=== PATIENT | female | born 1950 | race Caucasian/White ===

== ENCOUNTER 2019-04-09 16:49 | Inpatient (IN) | payer MEDICARE, OTHER ==
[~2019-04-09] VITALS: Ht 165.1 cm; Wt 59.9 kg
[2019-04-09 18:01] VITALS: BP 106/68
[2019-04-09] MEDS ORDERED: ACETAMINOPHEN 325 MG TABLET PO PRN (19:15)
[2019-04-09] MEDS ORDERED: *PATIENT'S OWN MED [ENTER DRUG, DOSE, FREQUENCY IN COMMENTS] CLINICAL ONE ×2 (19:15)
[2019-04-09 20:56] VITALS: BP 109/63
[2019-04-09] MEDS: DEXAMETHASONE 2 MG TABLET PO SCH (21:00)
[2019-04-09] MEDS: DOCUSATE SODIUM 100 MG CAPSULE PO SCH (21:00)
[2019-04-09] MEDS: CALCIUM OYSTER SHELL 250 MG-VIT D3 125 UNITS TABLET PO SCH (21:00)
[2019-04-09 23:30] VITALS: BP 114/71
[2019-04-10 06:27] LABS: BASOPHILS % (AUTO) 0.3 % (0.0-2.0); EOSINOPHILS % (AUTO) 0.1 % (1.0-6.0); HEMATOCRIT 36.6 % (36-46); HEMOGLOBIN 12.3 g/dL (12.0-16.0); LYMPHOCYTES % (AUTO) 11.6 % (22.0-44.0); MEAN CORPUSCULAR HEMOGLOBIN 30.4 pg (26.0-34.0); MEAN CORPUSCULAR HGB CONC 33.7 G/dL (31.0-37.0); MEAN CORPUSCULAR VOLUME 90 fL (80-100); MONOCYTES # (AUTO) 0.3 K/uL (0.1-1.0); MONOCYTES % (AUTO) 3.5 % (2.0-9.0); NEUTROPHILS # (AUTO) 7.3 K/uL (1.8-7.7); NEUTROPHILS % (AUTO) 84.5 % (40.0-70.0); PLATELET COUNT (AUTO) 475 K/uL (150-450); RED BLOOD CELL COUNT(AUTO) 4.06 MIL/uL (4.00-5.20)
[2019-04-10 07:08] LABS: ALANINE AMINOTRANSFERASE 67 U/L (12-78); ALBUMIN 2.2 g/dL (3.4-5.0); ALKALINE PHOSPHATASE 313 U/L (46-116); ANION GAP 13 mmol/L (8-16); ASPARTATE AMINOTRANSFERASE 42 U/L (15-37); BILIRUBIN,TOTAL 0.5 mg/dL (0.1-1.0); CARBON DIOXIDE 24 mmol/L (22-29); CHLORIDE 103 mmol/L (98-107); GLOMERULAR FILTR. RATE CALC > 60 mL/min (>60); GLUCOSE,RANDOM 89 mg/dL (70-110); POTASSIUM 4.3 mmol/L (3.5-5.1); SODIUM SERUM 140 mmol/L (136-145); UREA NITROGEN, BLOOD 15 mg/dL (7-18)
[2019-04-10 07:43] VITALS: BP 112/73
[2019-04-10] MEDS: RIVAROXABAN 15 MG TABLET PO SCH ×2 (07:52→17:43)
[2019-04-10] MEDS: DEXAMETHASONE 2 MG TABLET PO SCH ×2 (07:53→21:20)
[2019-04-10] MEDS: DOCUSATE SODIUM 100 MG CAPSULE PO SCH (07:54)
[2019-04-10] MEDS: CALCIUM OYSTER SHELL 250 MG-VIT D3 125 UNITS TABLET PO SCH ×2 (07:54→21:20)
[2019-04-10] MEDS: PALBOCICLIB 125 MG PO SCH (07:54)
[2019-04-10] MEDS: POLYETHYLENE GLYCOL 3350 17 GM PACKET PO SCH (07:55)
[2019-04-10] MEDS: LETROZOLE 2.5 MG TABLET (FEMARA) PO SCH (07:55)
[2019-04-10 13:31] LABS: APPEARANCE,URINE CLOUDY (CLEAR); BILIRUBIN,URINE NEGATIVE (NEGATIVE); GLUCOSE, URINE (UA) NEGATIVE (NEGATIVE); KETONES,URINE NEGATIVE (NEGATIVE); NITRATE,URINE POSITIVE (NEGATIVE); OCCULT BLOOD,URINE SMALL (NEGATIVE); PROTEIN,URINE NEGATIVE (NEGATIVE)
[2019-04-10 13:48] LABS: LEUKOCYTE ESTERASE ,URINE MODERATE (NEGATIVE)
[2019-04-10 13:49] LABS: BACTERIA,URINE Many /HPF (None Seen)
[2019-04-10 15:15] VITALS: BP 101/68
[2019-04-10] MEDS: DOCUSATE SODIUM 283 MG/5 ML MINI-ENEMA PR SCH (19:41)
[2019-04-10] MEDS: SENNA 187 MG TABLET PO SCH (21:20)
[2019-04-10] MEDS: MELATONIN 3 MG TABLET PO PRN (21:20)
[2019-04-10] MEDS: DOCUSATE SODIUM 250 MG CAPSULE PO SCH (21:20)
[2019-04-10] MEDS: TAMSULOSIN HCL 0.4 MG CAPSULE PO SCH (21:20)
[2019-04-10 21:47] VITALS: BP 131/63
[2019-04-11 05:00] VITALS: BP 112/61
[2019-04-11 07:40] VITALS: BP 112/68
[2019-04-11] MEDS: PALBOCICLIB 125 MG PO SCH (08:08)
[2019-04-11] MEDS: LETROZOLE 2.5 MG TABLET (FEMARA) PO SCH (08:09)
[2019-04-11] MEDS: DEXAMETHASONE 2 MG TABLET PO SCH ×2 (08:10→20:21)
[2019-04-11] MEDS: DOCUSATE SODIUM 250 MG CAPSULE PO SCH ×2 (08:11→20:21)
[2019-04-11] MEDS: RIVAROXABAN 15 MG TABLET PO SCH ×2 (08:11→17:52)
[2019-04-11] MEDS: POLYETHYLENE GLYCOL 3350 17 GM PACKET PO SCH (08:12)
[2019-04-11] MEDS: CALCIUM OYSTER SHELL 250 MG-VIT D3 125 UNITS TABLET PO SCH ×2 (08:12→20:21)
[2019-04-11 15:38] VITALS: BP 119/70
[2019-04-11] MEDS: DOCUSATE SODIUM 283 MG/5 ML MINI-ENEMA PR SCH (19:43)
[2019-04-11] MEDS: SENNA 187 MG TABLET PO SCH (20:21)
[2019-04-11] MEDS: TAMSULOSIN HCL 0.4 MG CAPSULE PO SCH (20:21)
[2019-04-11] MEDS: MELATONIN 3 MG TABLET PO PRN (20:22)
[2019-04-12 00:32] VITALS: BP 103/67
[2019-04-12 07:25] VITALS: BP 113/70
[2019-04-12] MEDS: RIVAROXABAN 15 MG TABLET PO SCH ×2 (07:57→17:27)
[2019-04-12] MEDS: PALBOCICLIB 125 MG PO SCH (09:24)
[2019-04-12] MEDS: DOCUSATE SODIUM 250 MG CAPSULE PO SCH ×2 (09:25→21:31)
[2019-04-12] MEDS: MULTIVITAMINS WITH MINERALS, THERAPEUTIC TABLET PO SCH (09:25)
[2019-04-12] MEDS: LETROZOLE 2.5 MG TABLET (FEMARA) PO SCH (09:25)
[2019-04-12] MEDS: CALCIUM OYSTER SHELL 250 MG-VIT D3 125 UNITS TABLET PO SCH ×2 (09:25→21:30)
[2019-04-12] MEDS: POLYETHYLENE GLYCOL 3350 17 GM PACKET PO SCH (09:25)
[2019-04-12] MEDS: DEXAMETHASONE 2 MG TABLET PO SCH ×2 (10:42→21:30)
[2019-04-12 16:05] VITALS: BP 107/71
[2019-04-12] MEDS: DOCUSATE SODIUM 283 MG/5 ML MINI-ENEMA PR SCH (18:27)
[2019-04-12] MEDS: SENNA 187 MG TABLET PO SCH (21:30)
[2019-04-12] MEDS: TAMSULOSIN HCL 0.4 MG CAPSULE PO SCH (21:31)
[2019-04-12] MEDS: MELATONIN 3 MG TABLET PO PRN (21:36)
[2019-04-12 23:17] VITALS: BP 112/67
[2019-04-13] MEDS ORDERED: OSCD250 PO (04:53)
[2019-04-13] MEDS ORDERED: LETR2.5 PO (04:53)
[2019-04-13] MEDS ORDERED: RIVA15T PO (04:53)
[2019-04-13] MEDS ORDERED: MELA3TAB66 PO (04:53)
[2019-04-13] MEDS ORDERED: SENN8.6T90 PO (04:53)
[2019-04-13] MEDS ORDERED: TAMS-1 PO (04:53)
[2019-04-13] MEDS ORDERED: POLY17PO PO (04:53)
[2019-04-13] MEDS ORDERED: DOCU250C91 PO (04:53)
[2019-04-13] MEDS ORDERED: DEXA1 PO (04:53)
[2019-04-13] MEDS ORDERED: ACET-2247 PO (04:53)
[2019-04-13] MEDS ORDERED: DOCU283E PR (04:53)
[2019-04-13] MEDS ORDERED: MULT-1239 PO (04:53)
[2019-04-13] MEDS ORDERED: ACET-784 PO (04:53)
[2019-04-13] MEDS ORDERED: PALB125C PO (04:53)
[2019-04-13 08:51] VITALS: BP 104/59
[2019-04-13] MEDS: PALBOCICLIB 125 MG PO SCH (09:08)
[2019-04-13] MEDS: DEXAMETHASONE 2 MG TABLET PO SCH ×2 (09:08→21:23)
[2019-04-13] MEDS: LETROZOLE 2.5 MG TABLET (FEMARA) PO SCH (09:08)
[2019-04-13] MEDS: DOCUSATE SODIUM 250 MG CAPSULE PO SCH ×2 (09:08→21:22)
[2019-04-13] MEDS: MULTIVITAMINS WITH MINERALS, THERAPEUTIC TABLET PO SCH (09:08)
[2019-04-13] MEDS: RIVAROXABAN 15 MG TABLET PO SCH ×2 (09:08→16:28)
[2019-04-13] MEDS: CALCIUM OYSTER SHELL 250 MG-VIT D3 125 UNITS TABLET PO SCH ×2 (09:09→21:23)
[2019-04-13] MEDS: POLYETHYLENE GLYCOL 3350 17 GM PACKET PO SCH (09:10)
[2019-04-13 15:45] VITALS: BP 92/53
[2019-04-13] MEDS: SULFAMETHOX/TRIMETH DS 800-160 MG/TABLET PO SCH ×2 (16:28→21:22)
[2019-04-13] MEDS: DOCUSATE SODIUM 283 MG/5 ML MINI-ENEMA PR SCH (18:00)
[2019-04-13] MEDS ORDERED: SULFAMETHOX/TRIMETH DS 800-160 MG/TABLET PO SCH ×2 (21:00)
[2019-04-13] MEDS: TAMSULOSIN HCL 0.4 MG CAPSULE PO SCH (21:22)
[2019-04-13] MEDS: SENNA 187 MG TABLET PO SCH (21:23)
[2019-04-13] MEDS: MELATONIN 3 MG TABLET PO PRN (21:23)
[2019-04-14 00:30] VITALS: BP 105/68
[2019-04-14] MEDS: ACETAMINOPHEN 325 MG TABLET PO PRN (06:38)
[2019-04-14 07:30] VITALS: BP 109/65
[2019-04-14] MEDS: RIVAROXABAN 15 MG TABLET PO SCH ×2 (08:21→16:32)
[2019-04-14] MEDS: CALCIUM OYSTER SHELL 250 MG-VIT D3 125 UNITS TABLET PO SCH ×2 (08:21→20:22)
[2019-04-14] MEDS: MULTIVITAMINS WITH MINERALS, THERAPEUTIC TABLET PO SCH (08:21)
[2019-04-14] MEDS: DEXAMETHASONE 2 MG TABLET PO SCH ×2 (08:21→20:21)
[2019-04-14] MEDS: SULFAMETHOX/TRIMETH DS 800-160 MG/TABLET PO SCH ×2 (08:22→20:21)
[2019-04-14] MEDS: DOCUSATE SODIUM 250 MG CAPSULE PO SCH ×2 (08:22→20:21)
[2019-04-14] MEDS: POLYETHYLENE GLYCOL 3350 17 GM PACKET PO SCH (08:22)
[2019-04-14] MEDS: PALBOCICLIB 125 MG PO SCH (08:22)
[2019-04-14] MEDS: LETROZOLE 2.5 MG TABLET (FEMARA) PO SCH (08:22)
[2019-04-14 15:28] VITALS: BP 106/56
[2019-04-14] MEDS: DOCUSATE SODIUM 283 MG/5 ML MINI-ENEMA PR SCH (18:00)
[2019-04-14] MEDS: TAMSULOSIN HCL 0.4 MG CAPSULE PO SCH (20:21)
[2019-04-14] MEDS: MELATONIN 3 MG TABLET PO PRN (20:21)
[2019-04-14] MEDS: SENNA 187 MG TABLET PO SCH (20:22)
[2019-04-14 23:20] VITALS: BP 98/63
[2019-04-15] MEDS: RIVAROXABAN 15 MG TABLET PO SCH ×2 (07:39→17:48)
[2019-04-15 07:48] VITALS: BP 128/76
[2019-04-15] MEDS: POLYETHYLENE GLYCOL 3350 17 GM PACKET PO SCH (08:48)
[2019-04-15] MEDS: CALCIUM OYSTER SHELL 250 MG-VIT D3 125 UNITS TABLET PO SCH ×2 (08:49→20:07)
[2019-04-15] MEDS: DEXAMETHASONE 1 MG TABLET PO SCH ×2 (08:49→20:07)
[2019-04-15] MEDS: SULFAMETHOX/TRIMETH DS 800-160 MG/TABLET PO SCH ×2 (08:49→20:07)
[2019-04-15] MEDS: MULTIVITAMINS WITH MINERALS, THERAPEUTIC TABLET PO SCH (08:49)
[2019-04-15] MEDS: DOCUSATE SODIUM 250 MG CAPSULE PO SCH ×2 (08:49→20:07)
[2019-04-15] MEDS: LETROZOLE 2.5 MG TABLET (FEMARA) PO SCH (08:50)
[2019-04-15] MEDS: PALBOCICLIB 125 MG PO SCH (08:50)
[2019-04-15] MEDS: FAMOTIDINE 20 MG TABLET PO SCH (12:19)
[2019-04-15 16:34] VITALS: BP 132/69
[2019-04-15] MEDS: DOCUSATE SODIUM 283 MG/5 ML MINI-ENEMA PR SCH (18:56)
[2019-04-15] MEDS: ACETAMINOPHEN 325 MG TABLET PO PRN (20:06)
[2019-04-15] MEDS: SENNA 187 MG TABLET PO SCH (20:06)
[2019-04-15] MEDS: TAMSULOSIN HCL 0.4 MG CAPSULE PO SCH (20:07)
[2019-04-15] MEDS: MELATONIN 3 MG TABLET PO PRN (20:08)
[2019-04-15 23:07] VITALS: BP 113/67
[2019-04-16] MEDS ORDERED: FAMO20 PO (02:21)
[2019-04-16] MEDS: FAMOTIDINE 20 MG TABLET PO SCH (06:05)
[2019-04-16 07:45] VITALS: BP 103/62
[2019-04-16] MEDS: RIVAROXABAN 15 MG TABLET PO SCH ×2 (08:03→17:46)
[2019-04-16] MEDS: POLYETHYLENE GLYCOL 3350 17 GM PACKET PO SCH (08:03)
[2019-04-16] MEDS: DEXAMETHASONE 1 MG TABLET PO SCH ×2 (08:03→20:24)
[2019-04-16] MEDS: LETROZOLE 2.5 MG TABLET (FEMARA) PO SCH (08:03)
[2019-04-16] MEDS: DOCUSATE SODIUM 250 MG CAPSULE PO SCH ×2 (08:03→20:24)
[2019-04-16] MEDS: CALCIUM OYSTER SHELL 250 MG-VIT D3 125 UNITS TABLET PO SCH ×2 (08:03→20:24)
[2019-04-16] MEDS: SULFAMETHOX/TRIMETH DS 800-160 MG/TABLET PO SCH ×2 (08:03→20:24)
[2019-04-16] MEDS: MULTIVITAMINS WITH MINERALS, THERAPEUTIC TABLET PO SCH (08:03)
[2019-04-16] MEDS: PALBOCICLIB 125 MG PO SCH (08:03)
[2019-04-16 15:09] VITALS: BP 113/74
[2019-04-16] MEDS: DOCUSATE SODIUM 283 MG/5 ML MINI-ENEMA PR SCH ×2 (18:00→18:56)
[2019-04-16] MEDS: SENNA 187 MG TABLET PO SCH (20:24)
[2019-04-16] MEDS: TAMSULOSIN HCL 0.4 MG CAPSULE PO SCH (20:24)
[2019-04-16 23:00] VITALS: BP 98/52
[2019-04-17 02:30] VITALS: BP 94/65
[2019-04-17] MEDS: FAMOTIDINE 20 MG TABLET PO SCH (06:00)
[2019-04-17 07:18] VITALS: BP 102/65
[2019-04-17] MEDS: RIVAROXABAN 15 MG TABLET PO SCH ×2 (08:09→17:30)
[2019-04-17] MEDS: DOCUSATE SODIUM 250 MG CAPSULE PO SCH ×2 (08:09→21:22)
[2019-04-17] MEDS: DEXAMETHASONE 1 MG TABLET PO SCH ×2 (08:10→21:23)
[2019-04-17] MEDS: MULTIVITAMINS WITH MINERALS, THERAPEUTIC TABLET PO SCH (08:10)
[2019-04-17] MEDS: CALCIUM OYSTER SHELL 250 MG-VIT D3 125 UNITS TABLET PO SCH ×2 (08:10→21:23)
[2019-04-17] MEDS: POLYETHYLENE GLYCOL 3350 17 GM PACKET PO SCH (08:10)
[2019-04-17] MEDS: PALBOCICLIB 125 MG PO SCH (08:11)
[2019-04-17] MEDS: LETROZOLE 2.5 MG TABLET (FEMARA) PO SCH (08:11)
[2019-04-17] MEDS: SULFAMETHOX/TRIMETH DS 800-160 MG/TABLET PO SCH ×2 (08:11→21:23)
[2019-04-17 15:30] VITALS: BP 113/66
[2019-04-17] MEDS: DOCUSATE SODIUM 283 MG/5 ML MINI-ENEMA PR SCH (18:00)
[2019-04-17] MEDS: TAMSULOSIN HCL 0.4 MG CAPSULE PO SCH (21:22)
[2019-04-17] MEDS: SENNA 187 MG TABLET PO SCH (21:23)
[2019-04-17 23:05] VITALS: BP 109/62
[2019-04-18] MEDS: FAMOTIDINE 20 MG TABLET PO SCH (05:53)
[2019-04-18 07:10] VITALS: BP 97/47
[2019-04-18] MEDS: RIVAROXABAN 15 MG TABLET PO SCH ×2 (07:43→17:45)
[2019-04-18] MEDS: SULFAMETHOX/TRIMETH DS 800-160 MG/TABLET PO SCH ×2 (08:08→20:35)
[2019-04-18] MEDS: PALBOCICLIB 125 MG PO SCH (08:08)
[2019-04-18] MEDS: LETROZOLE 2.5 MG TABLET (FEMARA) PO SCH (08:08)
[2019-04-18] MEDS: DOCUSATE SODIUM 250 MG CAPSULE PO SCH ×2 (08:08→20:35)
[2019-04-18] MEDS: CALCIUM OYSTER SHELL 250 MG-VIT D3 125 UNITS TABLET PO SCH ×2 (08:08→20:35)
[2019-04-18] MEDS: MULTIVITAMINS WITH MINERALS, THERAPEUTIC TABLET PO SCH (08:08)
[2019-04-18] MEDS: POLYETHYLENE GLYCOL 3350 17 GM PACKET PO SCH (08:08)
[2019-04-18] MEDS: DEXAMETHASONE 1 MG TABLET PO SCH (08:08)
[2019-04-18 16:23] VITALS: BP 116/70
[2019-04-18] MEDS: DOCUSATE SODIUM 283 MG/5 ML MINI-ENEMA PR SCH (18:00)
[2019-04-18] MEDS: SENNA 187 MG TABLET PO SCH (20:35)
[2019-04-18] MEDS: MELATONIN 3 MG TABLET PO PRN (20:35)
[2019-04-18] MEDS: TAMSULOSIN HCL 0.4 MG CAPSULE PO SCH (20:35)
[2019-04-19 00:58] VITALS: BP 99/52
[2019-04-19] MEDS: FAMOTIDINE 20 MG TABLET PO SCH (05:50)
[2019-04-19] MEDS: ACETAMINOPHEN 325 MG TABLET PO PRN (05:50)
[2019-04-19 07:08] VITALS: BP 107/59
[2019-04-19] MEDS: CALCIUM OYSTER SHELL 250 MG-VIT D3 125 UNITS TABLET PO SCH ×2 (07:47→20:22)
[2019-04-19] MEDS: LETROZOLE 2.5 MG TABLET (FEMARA) PO SCH (07:47)
[2019-04-19] MEDS: POLYETHYLENE GLYCOL 3350 17 GM PACKET PO SCH (07:47)
[2019-04-19] MEDS: SULFAMETHOX/TRIMETH DS 800-160 MG/TABLET PO SCH ×2 (07:47→20:22)
[2019-04-19] MEDS: PALBOCICLIB 125 MG PO SCH (07:47)
[2019-04-19] MEDS: DEXAMETHASONE 1 MG TABLET PO SCH (07:47)
[2019-04-19] MEDS: DOCUSATE SODIUM 250 MG CAPSULE PO SCH ×2 (07:47→20:22)
[2019-04-19] MEDS: RIVAROXABAN 15 MG TABLET PO SCH ×2 (07:47→17:48)
[2019-04-19] MEDS: MULTIVITAMINS WITH MINERALS, THERAPEUTIC TABLET PO SCH (07:48)
[2019-04-19 15:39] VITALS: BP 106/63
[2019-04-19] MEDS: DOCUSATE SODIUM 283 MG/5 ML MINI-ENEMA PR SCH (18:00)
[2019-04-19] MEDS: TAMSULOSIN HCL 0.4 MG CAPSULE PO SCH (20:22)
[2019-04-19] MEDS: SENNA 187 MG TABLET PO SCH (20:22)
[2019-04-19] MEDS: MELATONIN 3 MG TABLET PO PRN (20:22)
[2019-04-19 23:00] VITALS: BP_SYST 108; BP_DIAS 63; BP_DIAS 95
[2019-04-20] MEDS: FAMOTIDINE 20 MG TABLET PO SCH (06:08)
[2019-04-20] MEDS: ACETAMINOPHEN 325 MG TABLET PO PRN (06:08)
[2019-04-20 07:36] VITALS: BP 113/68
[2019-04-20] MEDS: RIVAROXABAN 15 MG TABLET PO SCH ×2 (07:56→17:54)
[2019-04-20] MEDS: POLYETHYLENE GLYCOL 3350 17 GM PACKET PO SCH (08:16)
[2019-04-20] MEDS: CALCIUM OYSTER SHELL 250 MG-VIT D3 125 UNITS TABLET PO SCH ×2 (08:16→19:53)
[2019-04-20] MEDS: DOCUSATE SODIUM 250 MG CAPSULE PO SCH ×2 (08:16→19:53)
[2019-04-20] MEDS: MULTIVITAMINS WITH MINERALS, THERAPEUTIC TABLET PO SCH (08:16)
[2019-04-20] MEDS: SULFAMETHOX/TRIMETH DS 800-160 MG/TABLET PO SCH ×2 (08:16→19:52)
[2019-04-20] MEDS: PALBOCICLIB 125 MG PO SCH (08:17)
[2019-04-20] MEDS: LETROZOLE 2.5 MG TABLET (FEMARA) PO SCH (08:17)
[2019-04-20 15:48] VITALS: BP 116/60
[2019-04-20] MEDS: DOCUSATE SODIUM 283 MG/5 ML MINI-ENEMA PR SCH (17:54)
[2019-04-20] MEDS: SENNA 187 MG TABLET PO SCH (19:52)
[2019-04-20] MEDS: TAMSULOSIN HCL 0.4 MG CAPSULE PO SCH (19:53)
[2019-04-20] MEDS: MELATONIN 3 MG TABLET PO PRN (20:40)
[2019-04-21 00:48] VITALS: BP 96/64
[2019-04-21] MEDS: FAMOTIDINE 20 MG TABLET PO SCH (05:54)
[2019-04-21 07:25] VITALS: BP 101/55
[2019-04-21] MEDS: PALBOCICLIB 125 MG PO SCH (07:54)
[2019-04-21] MEDS: LETROZOLE 2.5 MG TABLET (FEMARA) PO SCH (07:54)
[2019-04-21] MEDS: RIVAROXABAN 15 MG TABLET PO SCH ×2 (07:54→17:36)
[2019-04-21] MEDS: SULFAMETHOX/TRIMETH DS 800-160 MG/TABLET PO SCH ×2 (07:54→20:10)
[2019-04-21] MEDS: DOCUSATE SODIUM 250 MG CAPSULE PO SCH ×2 (07:54→20:10)
[2019-04-21] MEDS: CALCIUM OYSTER SHELL 250 MG-VIT D3 125 UNITS TABLET PO SCH ×2 (07:54→20:10)
[2019-04-21] MEDS: MULTIVITAMINS WITH MINERALS, THERAPEUTIC TABLET PO SCH (07:54)
[2019-04-21] MEDS: POLYETHYLENE GLYCOL 3350 17 GM PACKET PO SCH (07:55)
[2019-04-21 15:30] VITALS: BP 100/60
[2019-04-21] MEDS: DOCUSATE SODIUM 283 MG/5 ML MINI-ENEMA PR SCH (18:00)
[2019-04-21] MEDS: SENNA 187 MG TABLET PO SCH (20:10)
[2019-04-21] MEDS: TAMSULOSIN HCL 0.4 MG CAPSULE PO SCH (20:10)
[2019-04-21] MEDS: MELATONIN 3 MG TABLET PO PRN (20:10)
[2019-04-22] VITALS: BP 106/63
[2019-04-22] MEDS: FAMOTIDINE 20 MG TABLET PO SCH (06:16)
[2019-04-22] MEDS: ACETAMINOPHEN 325 MG TABLET PO PRN (06:17)
[2019-04-22 07:18] VITALS: BP 93/53
[2019-04-22] MEDS: MULTIVITAMINS WITH MINERALS, THERAPEUTIC TABLET PO SCH (08:25)
[2019-04-22] MEDS: SULFAMETHOX/TRIMETH DS 800-160 MG/TABLET PO SCH ×2 (08:25→20:25)
[2019-04-22] MEDS: POLYETHYLENE GLYCOL 3350 17 GM PACKET PO SCH (08:25)
[2019-04-22] MEDS: LETROZOLE 2.5 MG TABLET (FEMARA) PO SCH (08:25)
[2019-04-22] MEDS: CALCIUM OYSTER SHELL 250 MG-VIT D3 125 UNITS TABLET PO SCH ×2 (08:25→20:25)
[2019-04-22] MEDS: PALBOCICLIB 125 MG PO SCH (08:25)
[2019-04-22] MEDS: DOCUSATE SODIUM 250 MG CAPSULE PO SCH ×2 (08:26→20:25)
[2019-04-22] MEDS: RIVAROXABAN 15 MG TABLET PO SCH ×2 (08:26→18:24)
[2019-04-22 15:30] VITALS: BP 104/68
[2019-04-22] MEDS: DOCUSATE SODIUM 283 MG/5 ML MINI-ENEMA PR SCH (18:00)
[2019-04-22 20:18] VITALS: BP 101/54
[2019-04-22] MEDS: MELATONIN 3 MG TABLET PO PRN (20:25)
[2019-04-22] MEDS: TAMSULOSIN HCL 0.4 MG CAPSULE PO SCH (20:25)
[2019-04-22] MEDS: SENNA 187 MG TABLET PO SCH (20:25)
[2019-04-22 23:47] VITALS: BP 102/59
[2019-04-23] MEDS: ACETAMINOPHEN 325 MG TABLET PO PRN (04:54)
[2019-04-23] MEDS: FAMOTIDINE 20 MG TABLET PO SCH (06:30)
[2019-04-23 07:00] VITALS: BP 112/67
[2019-04-23] MEDS: PALBOCICLIB 125 MG PO SCH (08:10)
[2019-04-23] MEDS: DOCUSATE SODIUM 250 MG CAPSULE PO SCH ×2 (08:10→20:12)
[2019-04-23] MEDS: CALCIUM OYSTER SHELL 250 MG-VIT D3 125 UNITS TABLET PO SCH ×2 (08:10→20:12)
[2019-04-23] MEDS: RIVAROXABAN 15 MG TABLET PO SCH ×2 (08:10→17:08)
[2019-04-23] MEDS: POLYETHYLENE GLYCOL 3350 17 GM PACKET PO SCH (08:10)
[2019-04-23] MEDS: MULTIVITAMINS WITH MINERALS, THERAPEUTIC TABLET PO SCH (08:10)
[2019-04-23] MEDS: LETROZOLE 2.5 MG TABLET (FEMARA) PO SCH (08:10)
[2019-04-23 16:36] VITALS: BP 123/62
[2019-04-23] MEDS: DOCUSATE SODIUM 283 MG/5 ML MINI-ENEMA PR SCH (18:00)
[2019-04-23] MEDS: TAMSULOSIN HCL 0.4 MG CAPSULE PO SCH (20:12)
[2019-04-23] MEDS: SENNA 187 MG TABLET PO SCH (20:12)
[2019-04-23] MEDS: MELATONIN 3 MG TABLET PO PRN (20:13)
[2019-04-24 00:30] VITALS: BP 111/59
[2019-04-24] MEDS: FAMOTIDINE 20 MG TABLET PO SCH (06:22)
[2019-04-24 07:30] VITALS: BP 107/58
[2019-04-24] MEDS: PALBOCICLIB 125 MG PO SCH (08:32)
[2019-04-24] MEDS: LETROZOLE 2.5 MG TABLET (FEMARA) PO SCH (08:32)
[2019-04-24] MEDS: POLYETHYLENE GLYCOL 3350 17 GM PACKET PO SCH (08:32)
[2019-04-24] MEDS: DOCUSATE SODIUM 250 MG CAPSULE PO SCH ×2 (08:32→20:50)
[2019-04-24] MEDS: CALCIUM OYSTER SHELL 250 MG-VIT D3 125 UNITS TABLET PO SCH ×2 (08:33→20:50)
[2019-04-24] MEDS: MULTIVITAMINS WITH MINERALS, THERAPEUTIC TABLET PO SCH (08:33)
[2019-04-24] MEDS: RIVAROXABAN 20 MG TABLET PO SCH (17:50)
[2019-04-24] MEDS: DOCUSATE SODIUM 283 MG/5 ML MINI-ENEMA PR SCH (18:00)
[2019-04-24 19:30] VITALS: BP 101/64
[2019-04-24] MEDS: TAMSULOSIN HCL 0.4 MG CAPSULE PO SCH (20:50)
[2019-04-24] MEDS: SENNA 187 MG TABLET PO SCH (20:50)
[2019-04-24 21:12] LABS: APPEARANCE,URINE CLOUDY (CLEAR); BILIRUBIN,URINE NEGATIVE (NEGATIVE); GLUCOSE, URINE (UA) NEGATIVE (NEGATIVE); KETONES,URINE NEGATIVE (NEGATIVE); LEUKOCYTE ESTERASE ,URINE MODERATE (NEGATIVE); NITRATE,URINE POSITIVE (NEGATIVE); OCCULT BLOOD,URINE TRACE (NEGATIVE); PROTEIN,URINE NEGATIVE (NEGATIVE); UROBILINOGEN,URINE 0.2 mg/dL (<=1.0)
[2019-04-24 21:24] LABS: BACTERIA,URINE Moderate /HPF (None Seen); SQUAMOUS EPITHELIAL CELL,UR Few /LPF (None Seen)
[2019-04-25 01:30] VITALS: BP 97/58
[2019-04-25] MEDS: FAMOTIDINE 20 MG TABLET PO SCH (06:17)
[2019-04-25 07:20] VITALS: BP 104/66
[2019-04-25] MEDS: POLYETHYLENE GLYCOL 3350 17 GM PACKET PO SCH (08:32)
[2019-04-25] MEDS: DOCUSATE SODIUM 250 MG CAPSULE PO SCH ×2 (08:32→21:36)
[2019-04-25] MEDS: CALCIUM OYSTER SHELL 250 MG-VIT D3 125 UNITS TABLET PO SCH ×2 (08:32→21:36)
[2019-04-25] MEDS: MULTIVITAMINS WITH MINERALS, THERAPEUTIC TABLET PO SCH (08:32)
[2019-04-25] MEDS: LETROZOLE 2.5 MG TABLET (FEMARA) PO SCH (08:33)
[2019-04-25] MEDS: PALBOCICLIB 125 MG PO SCH (08:33)
[2019-04-25 15:58] VITALS: BP 103/64
[2019-04-25] MEDS: RIVAROXABAN 20 MG TABLET PO SCH (17:22)
[2019-04-25] MEDS: DOCUSATE SODIUM 283 MG/5 ML MINI-ENEMA PR SCH (17:23)
[2019-04-25] MEDS: SENNA 187 MG TABLET PO SCH (21:36)
[2019-04-25] MEDS: TAMSULOSIN HCL 0.4 MG CAPSULE PO SCH (21:36)
[2019-04-26] VITALS: BP 114/62
[2019-04-26] MEDS: FAMOTIDINE 20 MG TABLET PO SCH (05:51)
[2019-04-26 08:30] VITALS: BP 104/58
[2019-04-26] MEDS: PALBOCICLIB 125 MG PO SCH (08:51)
[2019-04-26] MEDS: LETROZOLE 2.5 MG TABLET (FEMARA) PO SCH (08:51)
[2019-04-26] MEDS: DOCUSATE SODIUM 250 MG CAPSULE PO SCH ×2 (08:51→20:44)
[2019-04-26] MEDS: MULTIVITAMINS WITH MINERALS, THERAPEUTIC TABLET PO SCH (08:52)
[2019-04-26] MEDS: CALCIUM OYSTER SHELL 250 MG-VIT D3 125 UNITS TABLET PO SCH ×2 (08:52→20:44)
[2019-04-26] MEDS: POLYETHYLENE GLYCOL 3350 17 GM PACKET PO SCH (08:52)
[2019-04-26] MEDS: LEVOFLOXACIN 500 MG TABLET PO SCH (12:20)
[2019-04-26 15:26] VITALS: BP 97/58
[2019-04-26 15:51] VITALS: BP 101/60
[2019-04-26] MEDS: RIVAROXABAN 20 MG TABLET PO SCH (17:37)
[2019-04-26] MEDS: SENNA 187 MG TABLET PO SCH (20:44)
[2019-04-26] MEDS: TAMSULOSIN HCL 0.4 MG CAPSULE PO SCH (20:44)
[2019-04-27] MEDS: FAMOTIDINE 20 MG TABLET PO SCH (05:38)
[2019-04-27 06:11] VITALS: BP 92/51
[2019-04-27] MEDS ORDERED: LEVO500 PO (07:59)
[2019-04-27 08:00] VITALS: BP 106/63
[2019-04-27] MEDS: DOCUSATE SODIUM 250 MG CAPSULE PO SCH ×2 (08:15→20:31)
[2019-04-27] MEDS: LETROZOLE 2.5 MG TABLET (FEMARA) PO SCH (08:15)
[2019-04-27] MEDS: LEVOFLOXACIN 500 MG TABLET PO SCH (08:15)
[2019-04-27] MEDS: MULTIVITAMINS WITH MINERALS, THERAPEUTIC TABLET PO SCH (08:15)
[2019-04-27] MEDS: CALCIUM OYSTER SHELL 250 MG-VIT D3 125 UNITS TABLET PO SCH ×2 (08:15→20:31)
[2019-04-27] MEDS: POLYETHYLENE GLYCOL 3350 17 GM PACKET PO SCH (08:22)
[2019-04-27 15:00] VITALS: BP 101/59
[2019-04-27] MEDS: RIVAROXABAN 20 MG TABLET PO SCH (18:46)
[2019-04-27] MEDS: SENNA 187 MG TABLET PO SCH (20:31)
[2019-04-27] MEDS: TAMSULOSIN HCL 0.4 MG CAPSULE PO SCH (20:31)
[2019-04-28 00:30] VITALS: BP 108/64
[2019-04-28] MEDS: FAMOTIDINE 20 MG TABLET PO SCH (06:05)
[2019-04-28 07:50] VITALS: BP 101/65
[2019-04-28] MEDS: POLYETHYLENE GLYCOL 3350 17 GM PACKET PO SCH (07:58)
[2019-04-28] MEDS: MULTIVITAMINS WITH MINERALS, THERAPEUTIC TABLET PO SCH (07:58)
[2019-04-28] MEDS: CALCIUM OYSTER SHELL 250 MG-VIT D3 125 UNITS TABLET PO SCH (07:58)
[2019-04-28] MEDS: LETROZOLE 2.5 MG TABLET (FEMARA) PO SCH (07:58)
[2019-04-28] MEDS: LEVOFLOXACIN 500 MG TABLET PO SCH (07:58)
[2019-04-28] MEDS: DOCUSATE SODIUM 250 MG CAPSULE PO SCH (07:58)
[2019-05-04] MEDS ORDERED: PALBOCICLIB 125 MG PO SCH (09:00)
== END 2019-04-28 15:12 | disposition home health service (06) | DRG 543 ==
LOC: 2WR 17:50
DX: M84.58XA Pathological fracture in neoplastic disease, other specified site, initial encounter for fracture (principal); G82.20 Paraplegia, unspecified; C79.51 Secondary malignant neoplasm of bone; C76.8 Malignant neoplasm of other specified ill-defined sites; G89.29 Other chronic pain; M48.02 Spinal stenosis, cervical region; M48.04 Spinal stenosis, thoracic region
CPT/HCPCS: 87081; 87086; 97110; 97112; 97163; 97167; 97530; 97535; 99366; J8540

== ENCOUNTER 2022-06-17 23:00 | Emergency (ER) | payer MEDICARE, OTHER ==
[~2022-06-17] VITALS: Ht 162.6 cm; Wt 63.6 kg
[~2022-06-17 23:00] MED LIST: ACET-2247 PO; ACET-784 PO; DOCU-350 PO; FAMO20 PO; LETR2.5 PO; LEVO-72 PO; MULT-1239 PO; OSCD250 PO; PALB125C PO; POLY17PO PO; RIVA15TA PO; SENN8.6T90 PO; TAMS-1 PO
[2022-06-18 01:13] LABS: BASOPHILS % (AUTO) 0.9 % (0.0-2.0); EOSINOPHILS % (AUTO) 3.9 % (1.0-6.0); HEMATOCRIT 22.3 % (36-46); HEMOGLOBIN 7.6 g/dL (12.0-16.0); LYMPHOCYTES # (AUTO) 1.1 K/uL (1.0-4.8); LYMPHOCYTES % (AUTO) 17.3 % (22.0-44.0); MEAN CORPUSCULAR HEMOGLOBIN 29.9 pg (26.0-34.0); MEAN CORPUSCULAR HGB CONC 33.9 G/dL (31.0-37.0); MEAN CORPUSCULAR VOLUME 88 fL (80-100); MONOCYTES # (AUTO) 0.8 K/uL (0.1-1.0); MONOCYTES % (AUTO) 12.3 % (2.0-9.0); NEUTROPHILS # (AUTO) 4.3 K/uL (1.8-7.7); NEUTROPHILS % (AUTO) 65.6 % (40.0-70.0); PLATELET COUNT (AUTO) 454 K/uL (150-450); RED BLOOD CELL COUNT(AUTO) 2.53 MIL/uL (4.00-5.20); RED CELL DISTRIBUTION WIDTH 17.3 % (11.5-14.5)
[2022-06-18 01:20] LABS: CALCIUM, TOTAL 9.4 mg/dL (8.8-10.5); CREATININE 2.03 mg/dL (0.60-1.30); POTASSIUM 4.8 mmol/L (3.5-5.1)
[2022-06-18 01:26] LABS: BILIRUBIN,TOTAL 0.3 mg/dL (0.1-1.0)
[2022-06-18] MEDS ORDERED: SODIUM CHLORIDE 0.9% 250 ML IV ONE (02:41)
[2022-06-18 02:45] VITALS: BP 145/77
[2022-06-18 03:00] VITALS: BP 150/75
[2022-06-18 03:15] VITALS: BP 148/77
[2022-06-18 03:45] VITALS: BP 155/75
[2022-06-18 04:23] LABS: APPEARANCE,URINE CLEAR (CLEAR); BILIRUBIN,URINE NEGATIVE (NEGATIVE); GLUCOSE, URINE (UA) NEGATIVE (NEGATIVE); KETONES,URINE NEGATIVE (NEGATIVE); LEUKOCYTE ESTERASE ,URINE LARGE (NEGATIVE); NITRATE,URINE NEGATIVE (NEGATIVE); OCCULT BLOOD,URINE LARGE (NEGATIVE); PROTEIN,URINE TRACE mg/dL (NEGATIVE); SPECIFIC GRAVITIY, URINE 1.008 (1.003-1.030); UROBILINOGEN,URINE <=1.0 mg/dL (<=1.0)
[2022-06-18 04:31] LABS: BACTERIA,URINE None Seen /HPF (None Seen); RBC,URINE 26-50 /HPF (0-2)
[2022-06-18 04:45] VITALS: BP 142/67
[2022-06-18 07:21] VITALS: BP 141/90
== END 2022-06-18 08:24 | disposition home or self-care (01) ==
LOC: EMS 23:02
DX: D64.9 Anemia, unspecified (principal); R31.9 Hematuria, unspecified; C79.81 Secondary malignant neoplasm of breast; Z79.899 Other long term (current) drug therapy
CPT/HCPCS: 99285; 36430; 80053; 81001; 85025; 86850; 86900; 86901; 86923; 36415; 87086; P9016; J7050